=== PATIENT | male | born 1975 | race Caucasian/White ===

== ENCOUNTER 2018-02-21 16:39 | Emergency (ER) | payer OTHER ==
[~2018-02-21] VITALS: Ht 185.4 cm; Wt 118.8 kg
[2018-02-21 17:06] VITALS: BP_SYST 174
[2018-02-21] MEDS ORDERED: LORazepam 1 MG TABLET PO ONE (17:30)
[2018-02-21] MEDS ORDERED: LISINOPRIL 10 MG TABLET (PRINIVIL) PO ONE (17:45)
[2018-02-21 18:24] VITALS: BP_SYST 145
== END 2018-02-21 18:24 | disposition home or self-care (01) ==
LOC: SED 16:39
DX: I10 Essential (primary) hypertension (principal); Z90.89 Acquired absence of other organs
CPT/HCPCS: 93005; 99283

== ENCOUNTER 2019-12-29 08:20 | Day surgery (SDC) | payer OTHER, SELFPAY ==
[~2019-12-29] VITALS: Ht 186.7 cm; Wt 127.0 kg
[2019-12-29] MEDS ORDERED: POLYMYXIN 500,000/BACIT.10,000 UNITS in NS IRR 1 L IR ONE (10:44)
[2019-12-29] MEDS ORDERED: MIDAZOLAM HCL 2 MG/2 ML VIAL (VERSED) IVP PRN (11:45)
[2019-12-29] MEDS ORDERED: LR 1,000 ML IV SCH (11:45)
[2019-12-29] MEDS ORDERED: LABETALOL 100 MG/ 20ML VIAL IVP PRN (11:45)
[2019-12-29] MEDS ORDERED: HYDROmorphone 1 MG INJ. 1 MG/ML AMPUL IVP PRN ×2 (11:45)
[2019-12-29] MEDS ORDERED: METOCLOPRAMIDE HCL 10 MG/2 ML VIAL IVP PRN (11:45)
[2019-12-29] MEDS ORDERED: MEPERIDINE HCL/PF 25 MG/ML DISP.SYRIN IVP PRN (11:45)
[2019-12-29] MEDS ORDERED: ONDANSETRON HCL 4 MG/2 ML VIAL IVP PRN (11:45)
[2019-12-29] MEDS ORDERED: hydrALAZINE HCL 20 MG/ML VIAL IVP PRN (11:45)
[2019-12-29 13:20] VITALS: BP_SYST 119
== END 2019-12-29 16:05 | disposition home or self-care (01) ==
LOC: SDS 08:20 → SMU 08:22 → SDS 16:05
PROVIDERS: ATTEND Otolaryngology
DX: J32.4 Chronic pansinusitis (principal); J31.0 Chronic rhinitis; R09.81 Nasal congestion; Z11.59 Encounter for screening for other viral diseases; Z87.891 Personal history of nicotine dependence; Z91.010 Allergy to peanuts; Z91.018 Allergy to other foods
CPT/HCPCS: 31256; 31296; 88305; 88311; 88312; A4649; J3465; U0003